=== PATIENT | male | born 1945 | race African-American/Black ===

== ENCOUNTER 2016-12-28 16:26 | Emergency (ER) | payer MEDICARE, OTHER ==
[~2016-12-28] VITALS: Ht 182.9 cm; Wt 81.6 kg
[2016-12-28 16:36] VITALS: BP 130/100
[2016-12-28] MEDS: HYDROmorphone HCL 2 MG/ML VL IM ONE (17:30)
[2016-12-28] MEDS: PROMETHAZINE HCL 25 MG/ML 1ML IM ONE (17:30)
[2016-12-28] MEDS: diphenhdrAMINE HCL 50 MG/1 ML VL IM ONE (18:22)
== END 2016-12-28 18:46 | disposition home or self-care (01) ==
LOC: ER 16:30
DX: G89.29 Other chronic pain (principal); M54.5 Low back pain; F17.210 Nicotine dependence, cigarettes, uncomplicated; Z88.6 Allergy status to analgesic agent
CPT/HCPCS: 96372; 99284; J1170; J1200; J2550

== ENCOUNTER 2016-12-31 09:08 | Emergency (ER) | payer MEDICARE, OTHER ==
[~2016-12-31] VITALS: Ht 182.9 cm; Wt 81.6 kg
[2016-12-31 09:18] VITALS: BP 142/100
[2016-12-31] MEDS ORDERED: HYDROmorphone HCL 2 MG/ML VL IM ONE (10:00)
[2016-12-31] MEDS ORDERED: ONDANSETRON HCL 4 MG/2 ML VIAL IM ONE (10:00)
== END 2016-12-31 11:06 | disposition home or self-care (01) ==
LOC: ER 09:08
DX: G89.29 Other chronic pain (principal); M54.5 Low back pain; F17.210 Nicotine dependence, cigarettes, uncomplicated; Z88.6 Allergy status to analgesic agent; K21.9 Gastro-esophageal reflux disease without esophagitis
CPT/HCPCS: 96372; 99284; J1170; J2405

== ENCOUNTER 2018-10-13 11:10 | Emergency (ER) | payer MEDICARE, OTHER ==
[~2018-10-13] VITALS: Ht 182.9 cm; Wt 75.3 kg
[2018-10-13] MEDS ORDERED: SODIUM CHLORIDE 0.9% 1,000 ML IV ONE (12:27)
[2018-10-13] MEDS ORDERED: ASPirin 81 mg TAB PO ONE (12:30)
[2018-10-13 12:36] VITALS: BP 126/78
[2018-10-13 12:58] LABS: Hematocrit 44.9 % (41.0-53.0); Hemoglobin 15.1 g/dL (13.5-17.5); Mean Corpuscular Hgb Conc. 33.6 g/dL (32.0-36.0); Mean Corpuscular Volume 92.3 fL (80.0-100.0); Platelet Count (auto) 296 10^3/uL (140-450); Red Blood Cells 4.87 10^6/uL (4.5-5.90); Red Cell Distribution Width 15.1 % (11.8-14.3); White Blood Cell 9.2 10^3/uL (4.4-10.8)
[2018-10-13 12:59] LABS: Band Neutrophils % (manual) 0; Basophils % (manual) 0 (0.0-2.0); Blast Cells 0; Metamyelocytes % 0; Myelocytes % 0; Promyelocytes % 0; Reactive Lymphocytes 0
[2018-10-13 13:27] LABS: Potassium 4.4 mmol/L (3.5-5.1)
[2018-10-13 13:30] LABS: Albumin 3.8 g/dL (3.4-5.0); Calcium 9.1 mg/dL (8.5-10.1)
[2018-10-13 13:33] LABS: BUN/Creatinine Ratio 9.7
[2018-10-13 13:34] LABS: Eosinophils % (manual) 2 (0-7); Lymphocytes % (manual) 57 (10.0-50.0); Monocytes % (manual) 8 (0-12)
[2018-10-13 13:35] LABS: Bilirubin, Total 0.5 mg/dL (0.2-1.0); Total Protein 7.3 g/dL (6.4-8.2)
[2018-10-13 14:59] LABS: Urine Bacteria NONE SEEN /hpf (None Seen); Urine Blood Negative /uL (Negative); Urine Mucus FEW (None Seen); Urine Specific Gravity 1.028 (1.001-1.035); Urine WBC 2 /hpf (0 - 3)
== END 2018-10-13 14:58 | disposition home or self-care (01) ==
LOC: ER 11:10
DX: J40 Bronchitis, not specified as acute or chronic (principal); M79.9 Soft tissue disorder, unspecified; K21.9 Gastro-esophageal reflux disease without esophagitis; I10 Essential (primary) hypertension
CPT/HCPCS: 36415; 71045; 80053; 81001; 84484; 85007; 85027; 93005; 99284; J7030

== ENCOUNTER 2021-12-16 10:44 | Inpatient (IN) | payer MEDICARE, OTHER ==
[~2021-12-16] VITALS: Ht 188 cm; Wt 78.1 kg
[~2021-12-16 10:44] MED LIST: AMLO-489 PO; ATEN-60 PO; POM; TAMS1CAP25 PO; ZOLP10TA PO
[2021-12-16 11:43] LABS: Basophils # (auto) 0.1 10 ^3/uL (0-0.2); Basophils % (auto) 0.8 % (0.0-2.0); Eosinophils # (auto) 0.1 10 ^3/uL (0-0.8); Hematocrit 41.5 % (41.0-53.0); Hemoglobin 13.7 g/dL (13.5-17.5); Lymphocytes # (auto) 0.9 10 ^3/uL (0.4-5.4); Lymphocytes % (auto) 15.4 % (10.0-50.0); Mean Corpuscular Hemoglobin 31.6 pg (28.0-32.0); Mean Corpuscular Hgb Conc. 33.1 g/dL (32.0-36.0); Mean Corpuscular Volume 95.7 fL (80.0-100.0); Monocytes # (auto) 0.5 10 ^3/uL (0-1.3); Monocytes % (auto) 7.9 % (0.0-12.0); Neutrophils # (auto) 4.6 10 ^3/uL (1.6-8.6); Neutrophils % (auto) 74.9 % (37.0-80.0); Red Blood Cells 4.34 10^6/uL (4.5-5.90); Red Cell Distribution Width 14.4 % (11.8-14.3); White Blood Cell 6.1 10^3/uL (4.4-10.8)
[2021-12-16 11:58] LABS: INR 1.1 (0.9-1.15); Partial Thromboplastin Time 27.2 sec (23.6-33.0)
[2021-12-16 11:59] LABS: Albumin 3.5 g/dL (3.4-5.0); BUN/Creatinine Ratio 20.4; Calcium 8.8 mg/dL (8.5-10.1); Magnesium 2.2 mg/dL (1.6-2.6); Potassium 4.2 mmol/L (3.5-5.1)
[2021-12-16 12:02] LABS: Bilirubin, Total 0.8 mg/dL (0.2-1.0); Total Protein 7.9 g/dL (6.4-8.2)
[2021-12-16] MEDS ORDERED: HYDROcodone-ACET 10/325MG TAB PO ONE (13:15)
[2021-12-16] MEDS ORDERED: ACETAMINOPHEN 500 MG TAB PO PRN (14:15)
[2021-12-16] MEDS ORDERED: DOCUSATE SOD 100 MG CAP PO PRN (14:15)
[2021-12-16] MEDS ORDERED: ACETAMINOPHEN 325 MG TAB PO PRN (14:15)
[2021-12-16] MEDS ORDERED: ONDANSETRON HCL 4 MG/2 ML VIAL IV PRN (14:15)
[2021-12-16] MEDS ORDERED: NITROGLYCERIN 0.4 MG SL TAB SL PRN (16:15)
[2021-12-16] MEDS: SODIUM CHLORIDE 0.9% 1,000 ML IV SCH (16:35)
[2021-12-16 17:42] VITALS: BP 127/76
[2021-12-16] MEDS: HYDROcodone-ACET 5/325MG TAB PO PRN (20:30)
[2021-12-16] MEDS: BUDESONIDE (INHALATION) 180 MCG IH IN SCH (21:09)
[2021-12-16] MEDS: ALBUTEROL SULF HFA 90MCG INH 200DOSE IN PRN (21:10)
[2021-12-16 22:00] VITALS: BP 133/76
[2021-12-16] MEDS: FAMOTIDINE (10MG/ML) 2ML VL IV SCH (22:36)
[2021-12-17 05:00] VITALS: BP 132/78
[2021-12-17] MEDS: BUDESONIDE (INHALATION) 180 MCG IH IN SCH ×2 (06:42→20:47)
[2021-12-17] MEDS: ALBUTEROL SULF HFA 90MCG INH 200DOSE IN PRN (06:42)
[2021-12-17] MEDS: SODIUM CHLORIDE 0.9% 1,000 ML IV SCH (06:55)
[2021-12-17 07:14] LABS: Potassium 3.9 mmol/L (3.5-5.1)
[2021-12-17 07:22] LABS: Albumin 3.1 g/dL (3.4-5.0); BUN/Creatinine Ratio 15.2; Bilirubin, Total 0.5 mg/dL (0.2-1.0); Calcium 8.7 mg/dL (8.5-10.1); Total Protein 5.9 g/dL (6.4-8.2)
[2021-12-17 07:35] LABS: Hematocrit 41.3 % (41.0-53.0); Hemoglobin 13.5 g/dL (13.5-17.5); Mean Corpuscular Hemoglobin 30.8 pg (28.0-32.0); Mean Corpuscular Hgb Conc. 32.6 g/dL (32.0-36.0); Mean Corpuscular Volume 94.2 fL (80.0-100.0); Red Blood Cells 4.38 10^6/uL (4.5-5.90); Red Cell Distribution Width 13.9 % (11.8-14.3); White Blood Cell 5.3 10^3/uL (4.4-10.8)
[2021-12-17 07:53] LABS: Band Neutrophils % (manual) 0; Basophils % (manual) 0 (0.0-2.0); Blast Cells 0; Eosinophils % (manual) 0 (0-7); Metamyelocytes % 0; Myelocytes % 0; Promyelocytes % 0
[2021-12-17 08:00] VITALS: BP_SYST 135; BP_SYST 142; BP_DIAS 79
[2021-12-17] MEDS: AZITHROMYCIN 500MG/ 250ML 250 ML IV SCH (09:13)
[2021-12-17] MEDS: DexAMETHasone SOD PHOS 10MG/1ML VIAL INJ IV SCH (09:13)
[2021-12-17] MEDS: FAMOTIDINE (10MG/ML) 2ML VL IV SCH ×2 (09:14→22:53)
[2021-12-17] MEDS: CHOLECALCIFEROL (VITD3) 2,000 UNIT CAP/TAB PO SCH (09:14)
[2021-12-17] MEDS: MULTIPLE VITAMIN TAB PO SCH (09:15)
[2021-12-17] MEDS: HYDROcodone-ACET 5/325MG TAB PO PRN (09:15)
[2021-12-17] MEDS: ENOXAPARIN SOD 40 MG/0.4 ML SYRINGE SC SCH (09:16)
[2021-12-17] MEDS: ASCORBIC ACID 1,000 MG TAB PO SCH (09:16)
[2021-12-17 12:00] VITALS: BP 135/79
[2021-12-17 12:08] LABS: Lymphocytes % (manual) 57 (10.0-50.0); Monocytes % (manual) 3 (0-12); Reactive Lymphocytes 2
[2021-12-17] MEDS ORDERED: ASCO10003 PO (12:22)
[2021-12-17] MEDS ORDERED: ALBUAER3 IN (12:22)
[2021-12-17] MEDS ORDERED: CHOL1CAP47 PO (12:22)
[2021-12-17] MEDS ORDERED: FAMO10TA66 OR (12:22)
[2021-12-17] MEDS ORDERED: AZITTAB PO (12:22)
[2021-12-17] MEDS ORDERED: PRED20TA2 PO (12:22)
[2021-12-17] MEDS ORDERED: AMLO-496 PO (12:22)
[2021-12-17] MEDS ORDERED: APIX2.5T PO (12:22)
[2021-12-17] MEDS: ZINC SULFATE 220mg CAP or TAB PO SCH (15:27)
[2021-12-17] MEDS ORDERED: ATEN50TA PO (15:46)
[2021-12-17] MEDS ORDERED: ZOLP10TA6 PO (15:46)
[2021-12-17 16:00] VITALS: BP 138/83
[2021-12-17] MEDS ORDERED: TAMS0.4C36 PO (16:03)
[2021-12-17] MEDS ORDERED: PANT40TA2 PO (16:19)
[2021-12-17] MEDS ORDERED: PANT1INJ3 PO (17:10)
[2021-12-17] MEDS ORDERED: POM PO (21:25)
[2021-12-17 22:00] VITALS: BP 109/62
[2021-12-17] MEDS ORDERED: IMBRUVICA 140 MG PO SCH (22:00)
[2021-12-18] MEDS: SODIUM CHLORIDE 0.9% 1,000 ML IV SCH (04:59)
[2021-12-18 05:00] VITALS: BP 136/80
[2021-12-18] MEDS: BUDESONIDE (INHALATION) 180 MCG IH IN SCH (06:23)
[2021-12-18] MEDS: ALBUTEROL SULF HFA 90MCG INH 200DOSE IN PRN (06:23)
[2021-12-18 08:00] VITALS: BP 146/69
[2021-12-18] MEDS ORDERED: amLODIPine BESYLATE 5 MG TAB PO SCH (10:00)
[2021-12-18] MEDS: DexAMETHasone SOD PHOS 10MG/1ML VIAL INJ IV SCH (10:54)
[2021-12-18] MEDS: FAMOTIDINE (10MG/ML) 2ML VL IV SCH (10:54)
[2021-12-18] MEDS: ZINC SULFATE 220mg CAP or TAB PO SCH (11:11)
[2021-12-18] MEDS: AZITHROMYCIN 500MG/ 250ML 250 ML IV SCH (11:11)
[2021-12-18] MEDS: MULTIPLE VITAMIN TAB PO SCH (11:12)
[2021-12-18] MEDS: CHOLECALCIFEROL (VITD3) 2,000 UNIT CAP/TAB PO SCH (11:13)
[2021-12-18] MEDS: ASCORBIC ACID 1,000 MG TAB PO SCH (11:13)
[2021-12-18] MEDS: ENOXAPARIN SOD 40 MG/0.4 ML SYRINGE SC SCH (11:14)
[2021-12-18] MEDS: HYDROcodone-ACET 5/325MG TAB PO PRN (11:15)
[2021-12-18 12:00] VITALS: BP 129/72
[2021-12-18 13:55] VITALS: BP 146/69
== END 2021-12-18 15:45 | disposition home or self-care (01) | DRG 177 ==
LOC: ER 10:44 → TELE 16:11 → TELE-EAST 20:05
PROVIDERS: ADMIT Nurse Practitioner Family; ATTEND Nurse Practitioner Family
PROC: 05HB33Z Insertion of Infusion Device into Right Basilic Vein, Percutaneous Approach (ICD-10-PCS; principal; 2021-12-16)
PROC: B54MZZA Ultrasonography of Right Upper Extremity Veins, Guidance (ICD-10-PCS; 2021-12-16)
DX: U07.1 COVID-19 (principal); J12.82 Pneumonia due to coronavirus disease 2019; E46 Unspecified protein-calorie malnutrition; J44.0 Chronic obstructive pulmonary disease with (acute) lower respiratory infection; Z68.1 Body mass index [BMI] 19.9 or less, adult; R00.1 Bradycardia, unspecified; I10 Essential (primary) hypertension; K21.9 Gastro-esophageal reflux disease without esophagitis; R09.02 Hypoxemia; R06.03 Acute respiratory distress; Z81.8 Family history of other mental and behavioral disorders; Z88.5 Allergy status to narcotic agent; Z88.8 Allergy status to other drugs, medicaments and biological substances; Z28.310 Unvaccinated for COVID-19
CPT/HCPCS: 36415; 71045; 80053; 83036; 83735; 84484; 85007; 85025; 85027; 85379; 85610; 85730; 93005; 94640; 96361; 96374; 96375; 99291; G0378; J1100; J3490

== ENCOUNTER 2021-12-20 13:16 | Emergency (ER) | payer MEDICARE ==
[~2021-12-20] VITALS: Ht 193 cm; Wt 76.0 kg
[~2021-12-20 13:16] MED LIST changes: +ALBUAER3 IN; -AMLO-489 PO; +AMLO-496 PO; +APIX2.5T PO; +ASCO10003 PO; -ATEN-60 PO; +ATEN50TA PO; +AZITTAB PO; +CHOL1CAP47 PO; +FAMO10TA66 OR; +PANT1INJ3 PO; +PANT40TA2 PO; +POM PO; +TAMS0.4C36 PO; -TAMS1CAP25 PO; -ZOLP10TA PO; +ZOLP10TA6 PO
[2021-12-20 14:05] VITALS: BP 113/80
== END 2021-12-20 16:02 | disposition left against medical advice (07) ==
LOC: ER 13:16
DX: Z76.0 Encounter for issue of repeat prescription (principal); Z53.21 Procedure and treatment not carried out due to patient leaving prior to being seen by health care provider